=== PATIENT | male | born 1965 | race Caucasian/White ===

== ENCOUNTER 2016-12-25 06:57 | Emergency (ER) | payer MEDICAID ==
[~2016-12-25] VITALS: Ht 193 cm; Wt 131.5 kg
[2016-12-25 08:59] LABS: Basophils # (auto) 0.1 uL; Basophils % (auto) 0.5 % (0.0-2.0); Eosinophils # (auto) 0.6 uL; Eosinophils % (auto) 4.9 % (0.0-7.0); Hematocrit 47.3 % (41.0-53.0); Hemoglobin 15.7 g/dL (13.5-17.5); Lymphocytes # (auto) 3.1 uL; Lymphocytes % (auto) 23.7 % (10.0-50.0); Mean Corpuscular Hemoglobin 30.1 pg (28.0-32.0); Mean Corpuscular Hgb Conc. 33.2 g/dL (32.0-36.0); Mean Corpuscular Volume 90.8 fL (80.0-100.0); Mean Platelet Volume 8.5 fL (7.4-10.4); Monocytes # (auto) 1.2 uL; Monocytes % (auto) 8.8 % (0.0-12.0); Neutrophils # (auto) 8.1 uL; Neutrophils % (auto) 62.1 % (37.0-80.0); Platelet Count (auto) 404 10^3/uL (140-450); Red Cell Distribution Width 14.9 % (11.6-16.0); White Blood Cell 13.1 10^3/uL (4.4-10.8)
[2016-12-25 09:22] LABS: Partial Thromboplastin Time 34.9 sec (22.64-33.71)
[2016-12-25 09:27] LABS: INR 2.15 (0.9-1.15); Prothrombin Time 22.1 sec (9.37-12.3)
[2016-12-25 09:30] LABS: Albumin 3.8 g/dL (3.4-5.0); BUN/Creatinine Ratio 14.8; Bilirubin, Total 0.3 mg/dL (0.2-1.0); Calcium 8.7 mg/dL (8.5-10.1); Potassium 3.7 mmol/L (3.5-5.1); Total Protein 8.1 g/dL (6.4-8.2)
[2016-12-25 11:21] LABS: Urine Bilirubin Negative (Negative); Urine Blood Negative /uL (Negative); Urine Color Yellow (Yellow); Urine Glucose Normal (Normal); Urine Ketone Negative (Negative); Urine Mucus FEW (None Seen); Urine Nitrite Negative (Negative); Urine RBC 1 /hpf (0 - 3); Urine Squamous Epithelial Cell FEW /hpf (<5); Urine Urobilinogen Normal (Negative); Urine pH 5.5 (5.0-8.0)
[2016-12-25 14:53] VITALS: BP 148/90
== END 2016-12-25 14:21 | disposition home or self-care (01) ==
LOC: ER 06:57
DX: K92.1 Melena (principal); E11.9 Type 2 diabetes mellitus without complications; N39.0 Urinary tract infection, site not specified; R05 Cough; Z79.01 Long term (current) use of anticoagulants; F17.210 Nicotine dependence, cigarettes, uncomplicated; F15.10 Other stimulant abuse, uncomplicated; I25.10 Atherosclerotic heart disease of native coronary artery without angina pectoris; I10 Essential (primary) hypertension; E78.5 Hyperlipidemia, unspecified
CPT/HCPCS: 36415; 71020; 80053; 81001; 85025; 85610; 85730; 93005; 94761

== ENCOUNTER 2017-02-18 05:15 | Emergency (ER) | payer MEDICAID ==
[~2017-02-18] VITALS: Ht 193 cm; Wt 108.9 kg
[2017-02-18 05:20] VITALS: BP 155/98
[2017-02-18] MEDS ORDERED: LIDOCAINE 1% HCL (LOCAL ANESTH.) INJ 20ML MDV IJ ONE (07:45)
== END 2017-02-18 08:09 | disposition home or self-care (01) ==
LOC: ER 05:16
DX: S60.421A Blister (nonthermal) of left index finger, initial encounter (principal); S60.512A Abrasion of left hand, initial encounter; E11.9 Type 2 diabetes mellitus without complications; E78.5 Hyperlipidemia, unspecified; I10 Essential (primary) hypertension; F17.210 Nicotine dependence, cigarettes, uncomplicated; F15.10 Other stimulant abuse, uncomplicated; Z86.73 Personal history of transient ischemic attack (TIA), and cerebral infarction without residual deficits; X58.XXXA Exposure to other specified factors, initial encounter; Y93.E8 Activity, other personal hygiene; Y99.8 Other external cause status; Y92.59 Other trade areas as the place of occurrence of the external cause
CPT/HCPCS: 10140; 99284; J2001; 26010

== ENCOUNTER 2020-01-17 10:58 | Emergency (ER) | payer MEDICAID ==
[~2020-01-17] VITALS: Ht 193 cm; Wt 113.4 kg
[2020-01-17 11:07] VITALS: BP 131/89
[2020-01-17] MEDS ORDERED: cefTRIAXone SOD 1,000 MG VL IM ONE (11:15)
== END 2020-01-17 11:50 | disposition home or self-care (01) ==
LOC: ER 10:58
DX: S50.862A Insect bite (nonvenomous) of left forearm, initial encounter (principal); I10 Essential (primary) hypertension; E78.5 Hyperlipidemia, unspecified; F17.210 Nicotine dependence, cigarettes, uncomplicated; W57.XXXA Bitten or stung by nonvenomous insect and other nonvenomous arthropods, initial encounter; Y93.89 Activity, other specified; Y92.89 Other specified places as the place of occurrence of the external cause; Y99.8 Other external cause status
CPT/HCPCS: 99283; J0696

== ENCOUNTER 2020-01-21 08:52 | Inpatient (IN) | payer MEDICAID ==
[~2020-01-21] VITALS: Ht 183.6 cm; Wt 131.8 kg
[2020-01-21] MEDS ORDERED: SODIUM CHLORIDE 0.9% 1,000 ML IV ONE (10:24)
[2020-01-21] MEDS ORDERED: CLINDAMYCIN 600MG IV 50 ML IV ONE (10:45)
[2020-01-21] MEDS ORDERED: ENOXAPARIN SOD 150 MG/1 ML SYRINGE SC ONE (10:45)
[2020-01-21] MEDS ORDERED: cefTRIAXone 1GM/50ML D5W 50 ML IV ONE (10:45)
[2020-01-21 10:52] LABS: Basophils # (auto) 0.1 10 ^3/uL (0-0.2); Basophils % (auto) 0.9 % (0.0-2.0); Eosinophils # (auto) 0.5 10 ^3/uL (0-0.8); Eosinophils % (auto) 4.4 % (0.0-7.0); Hematocrit 45.6 % (41.0-53.0); Hemoglobin 15.1 g/dL (13.5-17.5); Lymphocytes # (auto) 2.6 10 ^3/uL (0.4-5.4); Mean Corpuscular Hemoglobin 30.6 pg (28.0-32.0); Mean Corpuscular Hgb Conc. 33.2 g/dL (32.0-36.0); Mean Corpuscular Volume 92.3 fL (80.0-100.0); Monocytes % (auto) 8.2 % (0.0-12.0); Neutrophils % (auto) 65.5 % (37.0-80.0); Nucleated Red Blood Cells % 0.1 %; Platelet Count (auto) 383 10^3/uL (140-450); Red Blood Cells 4.95 10^6/uL (4.5-5.90); Red Cell Distribution Width 14.7 % (11.8-14.3); White Blood Cell 12.2 10^3/uL (4.4-10.8)
[2020-01-21 11:08] LABS: INR 1.01 (0.9-1.15); Partial Thromboplastin Time 28.5 sec (23.64-32.05)
[2020-01-21 11:12] LABS: Alanine Aminotransferase 31 U/L (16-61); Albumin 3.2 g/dL (3.4-5.0); Anion Gap 8 (5-15); Blood Urea Nitrogen 10 mg/dL (7-18); Calcium 8.5 mg/dL (8.5-10.1); Carbon Dioxide 22 mmol/L (21-32); Chloride 109 mmol/L (98-107); Glucose 124 mg/dL (74-106); Sodium 139 mmol/L (136-145)
[2020-01-21 11:17] LABS: Alkaline Phosphatase 92 U/L (45-117); Aspartate Aminotransferase 16 U/L (15-37); Bilirubin, Total 0.2 mg/dL (0.2-1.0); GFR African American 111 mL/min; GFR Non-African American 92 mL/min; Total Protein 7.9 g/dL (6.4-8.2)
[2020-01-21] MEDS ORDERED: MORPHINE SULF INJ 2 MG/ML SYRINGE 1ML IV PRN ×2 (12:45)
[2020-01-21] MEDS ORDERED: ALBUTEROL SULF 2.5 MG/0.5ML(0.5%) NEB SOLN NEB PRN (12:45)
[2020-01-21] MEDS ORDERED: ACETAMINOPHEN 500 MG TAB PO PRN (12:45)
[2020-01-21] MEDS ORDERED: ONDANSETRON HCL 4 MG/2 ML VIAL IV PRN (12:45)
[2020-01-21] MEDS ORDERED: NITROGLYCERIN 0.4 MG SL TAB SL PRN (12:45)
[2020-01-21] MEDS ORDERED: HYDROcodone-ACET 5/325MG TAB PO PRN (12:45)
[2020-01-21] MEDS ORDERED: IPRATROPIUM BROM 0.5 MG/2.5ML INH SOL NEB PRN (12:45)
[2020-01-21] MEDS ORDERED: IOHEXOL 350 MG/ML 100ML IJ ONE ×2 (13:03→13:29)
[2020-01-21] MEDS ORDERED: IOHEXOL 300 MG/ML 100ML BOTTLE IJ ONE (13:46)
[2020-01-21] MEDS: CLINDAMYCIN 300MG IV 50 ML IV SCH ×2 (14:30→21:38)
--- NOTE | 2020-01-21 14:33 | NUR ---
RECEIVED REPORT FROM CORTNEY BUCHANAN IN ER . WILL AWAIT PATIENT.
[2020-01-21] MEDS ORDERED: MET50T PO (15:22)
[2020-01-21] MEDS ORDERED: RIVA20TA PO (15:22)
[2020-01-21 16:31] VITALS: BP 100/66
--- NOTE | 2020-01-21 19:50 | NUR ---
Opening Shift Note Assumed care of patient, awake and alert, oriented x 4, clear speech, follows directions. On room air with even and unlabored respirations, no S/S of distress/SOB. Patient denies pain. Patient ambulate with steady gait. bed in lowest locked position with side rails up x 2 and call light within reach. Instructed on POC and to call for assist PRN, will continue to monitor for changes Q1hr and PRN.
[2020-01-21 20:59] LABS: Urine WBC None Seen /hpf (0 - 3)
[2020-01-21 21:13] LABS: Urine Bacteria NONE SEEN /hpf (None Seen); Urine Blood Negative /uL (Negative); Urine Specific Gravity 1.028 (1.001-1.035)
[2020-01-21 21:25] LABS: Alcohol, Urine < 3.0 mg/dL (0-5); Amphetamine Screen, Urine NEGATIVE (NEGATIVE); Barbiturate Scree,Urine NEGATIVE (NEGATIVE); Benzodiazephine Screen, Urine NEGATIVE (NEGATIVE); Cannabinoid Screen, Urine NEGATIVE (NEGATIVE); Cocaine Screen, Urine NEGATIVE (NEGATIVE); Opiate Scree,Urine NEGATIVE (NEGATIVE); Phencyclidine Screen, Urine NEGATIVE (NEGATIVE)
[2020-01-21] MEDS: ENOXAPARIN SOD 150 MG/1 ML SYRINGE SC SCH (21:39)
[2020-01-21] MEDS: METOPROLOL TARTRATE 25 MG TAB PO SCH (21:42)
[2020-01-21 21:44] VITALS: BP 124/74
[2020-01-22 04:03] VITALS: BP 116/66
[2020-01-22 05:13] VITALS: BP 115/70
[2020-01-22] MEDS: CLINDAMYCIN 300MG IV 50 ML IV SCH ×3 (05:26→21:38)
[2020-01-22 06:46] LABS: Basophils # (auto) 0.1 10 ^3/uL (0-0.2); Eosinophils # (auto) 0.6 10 ^3/uL (0-0.8); Eosinophils % (auto) 5.5 % (0.0-7.0); Hematocrit 42.3 % (41.0-53.0); Hemoglobin 14.2 g/dL (13.5-17.5); Lymphocytes # (auto) 2.6 10 ^3/uL (0.4-5.4); Mean Corpuscular Hemoglobin 30.8 pg (28.0-32.0); Mean Corpuscular Hgb Conc. 33.5 g/dL (32.0-36.0); Mean Corpuscular Volume 92.1 fL (80.0-100.0); Monocytes # (auto) 0.8 10 ^3/uL (0-1.3); Monocytes % (auto) 7.8 % (0.0-12.0); Neutrophils # (auto) 6.1 10 ^3/uL (1.6-8.6); Neutrophils % (auto) 59.7 % (37.0-80.0); Platelet Count (auto) 363 10^3/uL (140-450); Red Cell Distribution Width 14.7 % (11.8-14.3); White Blood Cell 10.2 10^3/uL (4.4-10.8)
[2020-01-22 06:59] LABS: Potassium 3.7 mmol/L (3.5-5.1)
[2020-01-22 07:08] LABS: Albumin 2.8 g/dL (3.4-5.0); BUN/Creatinine Ratio 10.5; Bilirubin, Total 0.3 mg/dL (0.2-1.0); Calcium 8.1 mg/dL (8.5-10.1); Total Protein 7.1 g/dL (6.4-8.2)
--- NOTE | 2020-01-22 07:16 | NUR ---
Closing Note patient resting in bed with even and unlabored respirations, no s/s of distress or pain. endorsed care to day shift RN.
--- NOTE | 2020-01-22 08:21 | NUR ---
Opening Shift Note Assumed care of patient after receiving report. Patient is awake and alert, resting comfortably in bed with no S/S of distress/SOB or pain. Instructed on POC, call light within reach, patient informed to call for assist PRN, will continue to monitor for changes Q1hr and PRN.
--- NOTE | 2020-01-22 08:45 | NUR ---
Respiratory note: ASSESSED PT FOR PRN TX, PATIENT WAS AWAKE AND ALERT NO RESP DISTRESS NOTED. HR 71, RR 18, SPO2 97% ON ROOM AIR.BS ARE CLEAR , NO INDICATION FOR TX AT THIS TIME. WILL CONTINUE TO MONITOR.
[2020-01-22 08:52] VITALS: BP 123/79
[2020-01-22] MEDS ORDERED: cefTRIAXone 1GM/50ML D5W 50 ML IV SCH (09:00)
[2020-01-22] MEDS: ENOXAPARIN SOD 150 MG/1 ML SYRINGE SC SCH ×2 (09:29→21:39)
[2020-01-22] MEDS: METOPROLOL TARTRATE 25 MG TAB PO SCH ×2 (09:30→21:38)
[2020-01-22] MEDS ORDERED: FAMOTIDINE 20 MG TAB PO SCH (10:00)
[2020-01-22] MEDS ORDERED: SODIUM CHLORIDE 0.9% 1,000 ML IV ONE (11:15)
[2020-01-22] MEDS ORDERED: CEPH250C PO (12:44)
[2020-01-22] MEDS ORDERED: ACET250T3 PO (12:46)
[2020-01-22] MEDS ORDERED: ACET-1158 PO (12:47)
[2020-01-22 13:00] VITALS: BP 125/83
--- NOTE | 2020-01-22 15:39 | NUR ---
RECEIVED CALL FROM PHARMACY MICHELLE TO CLARIFY HOME MEDICATIONS. PATIENT STATES HE TAKES 50 MG BID, HERE ORDERED IS 25 MG BID PATIENTS HEART RATE HAS BEEN HOVERING AROUND MID 50'S TO 60'S DISCUSSED WITH PHARMACIST AND WILL LEAVE METOPROLOL IS UNTIL DOCTOR CAN LOOK INTO VS AND SPEAK TO PATIENT REGARDING DOSAGE.
[2020-01-22 16:58] VITALS: BP 121/68
--- NOTE | 2020-01-22 19:40 | NUR ---
Opening Shift Note Assumed care of patient, awake and alert, oriented x 4, clear speech, follows directions. On room air with even and unlabored respirations, no S/S of distress/SOB. Patient denies pain. Patient ambulate with steady gait. Bed in lowest locked position with side rails up x 2 and call light within reach. Instructed on POC and to call for assist PRN, will continue to monitor for changes Q1hr and PRN.
[2020-01-22 22:00] VITALS: BP 114/89
--- NOTE | 2020-01-23 00:01 | NUR ---
Rounds patient resting in bed with eyes closed, noted chest rise and fall, even and unlabored respirations, no s/s of distress. Patient on tele monitor #64 sinus bradycardia HR 57. Bed in lowest locked position with side rails up x 2 and call light within reach. Will continue to monitor.
--- NOTE | 2020-01-23 01:08 | NUR ---
RT NOTE: PT ASSESSED BY RT @ THIS TIME. PRN TX NOT INDICATED. SPO2 95% ON RM, HR 58, RR 20, CLEAR/DIMINISHED BS AUSCULTATED. NO SOB OR DISTRESS NOTED.
--- NOTE | 2020-01-23 04:05 | NUR ---
Rounds Rounds patient resting in bed with eyes closed, noted chest rise and fall, even and unlabored respirations, no s/s of distress. Patient on tele monitor #64 sinus bradycardia HR 55. Arousalable to name. Bed in lowest locked position with side rails up x 2 and call light within reach. Will continue to monitor.
[2020-01-23 05:00] VITALS: BP 102/68
[2020-01-23] MEDS: CLINDAMYCIN 300MG IV 50 ML IV SCH (06:02)
--- NOTE | 2020-01-23 07:10 | NUR ---
AMA Note DANA JAMA states they want to leave the hospital Against Medical Advice (AMA). Patient encouraged to stay for further treatment/stabilization, patient states his mother has dementia with no one to care for her and can not wait. Dr. June notified of patient's wishes. Patient advised of the risks and benefits of leaving AMA, Patient verbalized understanding. POM returned to patient. Patient encouraged to return to the ER if symptoms do not improve or worsen.
== END 2020-01-23 07:10 | disposition left against medical advice (07) | DRG 720 ==
LOC: ER 08:52 → TELE 08:53 → TELE-WESTW 15:01
PROVIDERS: ADMIT Nurse Practitioner Acute Care; ATTEND Internal Medicine Nephrology
DX: A41.9 Sepsis, unspecified organism (principal); D68.59 Other primary thrombophilia; I82.622 Acute embolism and thrombosis of deep veins of left upper extremity; E66.01 Morbid (severe) obesity due to excess calories; L03.114 Cellulitis of left upper limb; I25.2 Old myocardial infarction; Z86.73 Personal history of transient ischemic attack (TIA), and cerebral infarction without residual deficits; F14.10 Cocaine abuse, uncomplicated; Z68.39 Body mass index [BMI] 39.0-39.9, adult; I10 Essential (primary) hypertension; F17.210 Nicotine dependence, cigarettes, uncomplicated; Z86.711 Personal history of pulmonary embolism; Z86.718 Personal history of other venous thrombosis and embolism; Z53.29 Procedure and treatment not carried out because of patient's decision for other reasons
CPT/HCPCS: 36415; 71046; 71275; 73201; 80053; 80307; 81001; 81241; 84484; 85025; 85610; 85730; 87040; 93971; 96365; 96368; 96372; G0378; J0696; J3490

== ENCOUNTER 2022-07-18 01:33 | Emergency (ER) | payer MEDICAID ==
[~2022-07-18] VITALS: Ht 193 cm; Wt 145.5 kg
[~2022-07-18 01:33] MED LIST: ACET-1158 PO; CEPH-322 PO; MET50T PO; RIVA20TA PO
[2022-07-18 02:02] VITALS: BP 134/79
== END 2022-07-18 06:27 | disposition left against medical advice (07) ==
LOC: ER 01:33
DX: H57.12 Ocular pain, left eye (principal); Z53.21 Procedure and treatment not carried out due to patient leaving prior to being seen by health care provider